=== PATIENT | male | born 1965 | race African-American/Black ===

== ENCOUNTER 2021-11-29 12:09 | Outpatient (CLI) | payer BC | END 2021-11-29 12:10 | disposition home or self-care (01) | LOC: CSHULT 12:09 | PROVIDERS: ATTEND Urology | DX: C64.9 Malignant neoplasm of unspecified kidney, except renal pelvis (principal); N28.9 Disorder of kidney and ureter, unspecified; Z90.5 Acquired absence of kidney; N32.89 Other specified disorders of bladder | CPT/HCPCS: 71046; 76775 ==